=== PATIENT | female | born 1965 | race Caucasian/White ===

== ENCOUNTER → 2016-09-30 | Outpatient (CLI) | payer OTHER ==
[~2016-09-30] MED LIST: ADVIL,NUPRIN,M200 MG PO; BENZONATATE100 MG PO; ENDOCET 5-3251 EACH PO; IBUPROFEN800 MG PO; LEVAQUIN750 MG PO; LEVOFLOXACIN750 MG PO; NORCO 5/3251 TABLET PO; PREDNISONE10 MG PO; PREDNISONE20 MG PO; TRAMADOL HCL50 MG PO; VALIUM5 MG PO; VENTOLIN HFA18 GM IH; VIRTUSSIN AC L473 ML PO
== END | disposition home or self-care (01) ==
LOC: RAD 12:22
DX: M17.11 Unilateral primary osteoarthritis, right knee (principal); M25.461 Effusion, right knee; M25.561 Pain in right knee
CPT/HCPCS: 73564

== ENCOUNTER 2016-10-05 10:41 | Emergency (ER) | payer OTHER ==
[~2016-10-05] VITALS: Ht 167.6 cm; Wt 104.6 kg
[2016-10-05 11:29] LABS: HEMATOCRIT 41.3 % (36.0-46.0); MCH 29.5 PG (29.0-34.0); MCHC 32.7 G/DL (30.0-36.0); MCV 90.4 FL (83-99); MEAN PLAT.VOLUME 9.1 uM^3 (9.5-12.4); PLATELET COUNT 223 K/uL (156-360); RBC DIS.WIDTH-CV 13.2 % (11.8-14.6); RBC DIS.WIDTH-SD 43.7 % (39-53); RED BLOOD COUNT 4.57 M/uL (3.80-5.20); WHITE BLOOD COUNT 7.1 K/uL (4.1-10.2)
[2016-10-05 11:45] LABS: CHLORIDE 105 mEq/L (99-109)
[2016-10-05 11:46] LABS: POTASSIUM 4.4 mEq/L (3.7-5.4); SODIUM 141 mEq/L (136-147)
[2016-10-05 11:47] LABS: GLUCOSE 92 mg/dL (70-99)
[2016-10-05 11:49] LABS: ANION GAP 11 MEQ/L (2-14)
[2016-10-05 11:51] LABS: GFR ESTIMATE (CALCULATED) > 59 mL/min/
[2016-10-05 11:52] LABS: UREA NITROGEN (BUN) 24 mg/dL (9-23)
[2016-10-05 11:54] LABS: TROP-I INTERPRETATION NEGATIVE; TROPONIN-I < 0.01 ng/mL (0.0-0.30)
[2016-10-05 14:26] LABS: TROP-I INTERPRETATION NEGATIVE; TROPONIN-I < 0.01 ng/mL (0.0-0.30)
[2016-10-05 16:01] VITALS: BP 125/74
== END 2016-10-05 16:03 | disposition home or self-care (01) ==
LOC: EME 10:41 → EXP 10:41
PROVIDERS: Physician Assistant
DX: R00.2 Palpitations (principal); R55 Syncope and collapse; R06.02 Shortness of breath; M79.604 Pain in right leg; F15.20 Other stimulant dependence, uncomplicated; F17.200 Nicotine dependence, unspecified, uncomplicated; Z71.6 Tobacco abuse counseling
CPT/HCPCS: 71020; 80048; 84443; 84484; 85027; 93005; 93971; 99281; 99284

== ENCOUNTER 2017-04-12 18:32 | Emergency (ER) | payer OTHER ==
[~2017-04-12] VITALS: Ht 167.6 cm; Wt 105.6 kg
[2017-04-12 19:18] LABS: HEMATOCRIT 39.9 % (36.0-46.0); MCH 29.8 PG (29.0-34.0); MCHC 32.6 G/DL (30.0-36.0); MCV 91.5 FL (83-99); MEAN PLAT.VOLUME 9.1 uM^3 (9.5-12.4); PLATELET COUNT 197 K/uL (156-360); RBC DIS.WIDTH-CV 13.2 % (11.8-14.6); RBC DIS.WIDTH-SD 44.5 % (39-53); RED BLOOD COUNT 4.36 M/uL (3.80-5.20); WHITE BLOOD COUNT 5.7 K/uL (4.1-10.2)
[2017-04-12 19:30] LABS: CHLORIDE 107 mEq/L (99-109); POTASSIUM 3.8 mEq/L (3.7-5.4); SODIUM 143 mEq/L (136-147)
[2017-04-12 19:32] LABS: GLUCOSE 107 mg/dL (70-99)
[2017-04-12 19:33] LABS: ANION GAP 11 MEQ/L (2-14)
[2017-04-12 19:35] LABS: GFR ESTIMATE (CALCULATED) > 59 mL/min/
[2017-04-12 19:36] LABS: UREA NITROGEN (BUN) 18 mg/dL (9-23)
[2017-04-12 19:38] LABS: TROP-I INTERPRETATION NEGATIVE; TROPONIN-I < 0.01 ng/mL (0.0-0.30)
[2017-04-12 21:43] VITALS: BP 112/79
== END 2017-04-12 21:39 | disposition home or self-care (01) ==
LOC: RME 18:32 → EME 18:32 → RME 21:39
DX: R00.2 Palpitations (principal); F17.210 Nicotine dependence, cigarettes, uncomplicated
CPT/HCPCS: 71020; 80048; 84484; 85027; 93005; 99281; 99283

== ENCOUNTER 2017-05-08 15:06 | Emergency (ER) | payer OTHER ==
[~2017-05-08] VITALS: Ht 167.6 cm; Wt 106.3 kg
[2017-05-08] MEDS ORDERED: MOTRIN600 MG PO (18:41)
[2017-05-08 18:46] VITALS: BP 137/84
== END 2017-05-08 18:46 | disposition home or self-care (01) ==
LOC: EME 15:06
DX: I80.01 Phlebitis and thrombophlebitis of superficial vessels of right lower extremity (principal); F17.200 Nicotine dependence, unspecified, uncomplicated
CPT/HCPCS: 93971; 99281; 99284

== ENCOUNTER 2017-05-21 11:54 | Emergency (ER) | payer OTHER ==
[~2017-05-21] VITALS: Ht 170.2 cm; Wt 103.5 kg
[~2017-05-21 11:54] MED LIST changes: +MOTRIN600 MG PO
[2017-05-21 12:57] LABS: EOSINOPHIL (%) 1.8 % (0-5); EOSINOPHIL COUNT 0.1 K/uL (0-0.3); HEMATOCRIT 43.2 % (36.0-46.0); IMMATURE GRANULOCYTE (%) 0.4 % (0.0-0.7); INSTRUMENT ABS NEUTROPHIL CT 2.5 K/uL; LYMPHOCYTE COUNT 1.9 K/uL (1.0-2.8); MCH 29.7 PG (29.0-34.0); MCHC 32.6 G/DL (30.0-36.0); MCV 90.9 FL (83-99); MEAN PLAT.VOLUME 9.9 uM^3 (9.5-12.4); MONOCYTE (%) 8.5 % (3-12); MONOCYTE COUNT 0.4 K/uL (0-0.8); NEUTROPHIL (%) 50.6 % (45-76); NEUTROPHIL COUNT 2.5 K/uL (1.8-6.4); PLATELET COUNT 217 K/uL (156-360); RBC DIS.WIDTH-CV 12.8 % (11.8-14.6); RBC DIS.WIDTH-SD 42.4 % (39-53); RED BLOOD COUNT 4.75 M/uL (3.80-5.20); WHITE BLOOD COUNT 4.9 K/uL (4.1-10.2)
[2017-05-21 13:12] LABS: CHLORIDE 104 mEq/L (99-109); SODIUM 140 mEq/L (136-147)
[2017-05-21 13:15] LABS: GLUCOSE 102 mg/dL (70-99)
[2017-05-21 13:16] LABS: ANION GAP 11 MEQ/L (2-14)
[2017-05-21 13:17] LABS: TOTAL BILIRUBIN 0.5 mg/dL (0.0-1.0)
[2017-05-21 13:18] LABS: ALKALINE PHOSPHATASE 97 IU/L (3-129); GFR ESTIMATE (CALCULATED) > 59 mL/min/; TROP-I INTERPRETATION NEGATIVE; TROPONIN-I < 0.01 ng/mL (0.0-0.30)
[2017-05-21 13:19] LABS: UREA NITROGEN (BUN) 18 mg/dL (9-23)
[2017-05-21] MEDS ORDERED: METOPROLOL TART25 MG PO (14:05)
[2017-05-21 14:31] VITALS: BP 124/85
== END 2017-05-21 14:32 | disposition home or self-care (01) ==
LOC: EME 11:54
PROVIDERS: Emergency Medicine
DX: I47.1 Supraventricular tachycardia (principal); F17.200 Nicotine dependence, unspecified, uncomplicated; Z90.49 Acquired absence of other specified parts of digestive tract; Z90.710 Acquired absence of both cervix and uterus; R07.89 Other chest pain
CPT/HCPCS: 71010; 80053; 84443; 84484; 85025; 93005; 99281; 99285

== ENCOUNTER 2017-10-13 21:22 | Emergency (ER) | payer OTHER ==
[~2017-10-13] VITALS: Ht 167.6 cm; Wt 107.0 kg
[~2017-10-13 21:22] MED LIST changes: +METOPROLOL TART25 MG PO
[2017-10-13 22:30] LABS: HEMATOCRIT 40.6 % (36.0-46.0); HEMOGLOBIN 13.4 G/DL (11.9-15.5); MCH 30.2 PG (29.0-34.0); MCV 91.4 FL (83-99); PLATELET COUNT 211 K/uL (156-360); RBC DIS.WIDTH-CV 13.2 % (11.8-14.6); RBC DIS.WIDTH-SD 44.5 % (39-53); RED BLOOD COUNT 4.44 M/uL (3.80-5.20); WHITE BLOOD COUNT 8.2 K/uL (4.1-10.2)
[2017-10-13 22:45] LABS: CHLORIDE 104 mEq/L (99-109); SODIUM 141 mEq/L (136-147)
[2017-10-13 22:47] LABS: GLUCOSE 96 mg/dL (70-99)
[2017-10-13 22:51] LABS: GFR ESTIMATE (CALCULATED) > 59 mL/min/
[2017-10-13 22:52] LABS: UREA NITROGEN (BUN) 27 mg/dL (9-23)
[2017-10-13 22:55] LABS: TROP-I INTERPRETATION NEGATIVE; TROPONIN-I < 0.01 ng/mL (0.0-0.30)
[2017-10-14 01:44] LABS: TROP-I INTERPRETATION NEGATIVE; TROPONIN-I < 0.01 ng/mL (0.0-0.30)
[2017-10-14 02:16] LABS: ALBUMIN 4.2 g/dL (3.2-4.8)
[2017-10-14 02:17] LABS: MAGNESIUM 2.5 mg/dL (1.3-2.7)
[2017-10-14 02:19] LABS: TOTAL PROTEIN 6.9 g/dL (6.4-8.3)
[2017-10-14 02:20] VITALS: BP 105/79
[2017-10-14 02:21] LABS: TOTAL BILIRUBIN 0.4 mg/dL (0.0-1.0)
[2017-10-14 02:22] LABS: ALKALINE PHOSPHATASE 92 IU/L (3-129)
[2017-10-14 02:23] LABS: PHOSPHORUS 4.2 mg/dL (2.5-4.9)
[2017-10-14 02:24] LABS: AST (GOT) 13 IU/L (2-34); DIRECT BILIRUBIN 0.1 mg/dL (0.0-0.3)
[2017-10-14 02:25] LABS: ALT (GPT) 20 IU/L (3-49)
== END 2017-10-14 02:58 | disposition home or self-care (01) ==
LOC: EME 21:22
DX: R07.89 Other chest pain (principal); R00.2 Palpitations; F17.200 Nicotine dependence, unspecified, uncomplicated; Z90.49 Acquired absence of other specified parts of digestive tract; Z90.710 Acquired absence of both cervix and uterus
CPT/HCPCS: 71046; 80048; 80076; 83735; 84100; 84484; 85027; 85379; 93005; 99281; 99285

== ENCOUNTER → 2017-10-22 | Outpatient (CLI) | payer OTHER | END | disposition home or self-care (01) | LOC: RAD 13:04 | DX: M17.12 Unilateral primary osteoarthritis, left knee (principal); M23.42 Loose body in knee, left knee; M25.462 Effusion, left knee | CPT/HCPCS: 73564 ==